=== PATIENT | male | born 1950 | race Caucasian/White ===

== ENCOUNTER → 2016-05-10 11:20 | Outpatient (CLI) | payer MEDICARE, BC ==
[2016-01-26 12:30] VITALS: BMI 25.3
[~2016-05-10 11:20] MED LIST: ASPIRIN EC81 M1 PO; BACLOFEN20 M1 PO; CRESTOR10 MG PO; DITROPAN X10 MG/BOTT PO; DOXYCYCLINE HY100 M2 PO; HYDROCODONE-APA1 TAB PO; IBUPROFEN800 MG PO; LANOXIN250 MCG PO; METROGEL 0.75 %45 GM TOPICAL; PROPRANOLOL HCL20 MG PO
[2016-05-10 12:00] LABS: BASOPHILS 0.3 % (0.0-2.0); EOSINOPHILS 2.5 % (0-7); HEMATOCRIT 47.5 % (42.0-54.0); HEMOGLOBIN 15.5 g/dL (13.5-17.5); IMMATURE GRANULOCYTES 0.4 % (0-5); MCH 31.8 pg (26.0-34.0); MCHC 32.6 g/dL (31.0-37.0); MCV 97.5 fL (80.0-100.0); MEAN PLATELET VOLUME 10.3 fL (7.4-10.4); MONOCYTES 8.5 % (2-11); NEUTROPHILS 66.3 % (40-80); RBC 4.87 10x6/uL (4.20-6.10); RDW 13.2 % (11.5-14.5)
[2016-05-10 12:01] LABS: PLATELET COUNT 165 10x3/uL (130-400)
[2016-05-10 12:24] LABS: ALBUMIN 3.9 g/dL (3.4-5.0); BILIRUBIN - DIRECT 0.15 mg/dL (0.00-0.30); BILIRUBIN - INDIRECT 0.41 mg/dL (0.00-1.00); BILIRUBIN - TOTAL 0.56 mg/dL (0.2-1.3); PROTEIN - SERUM 6.9 g/dL (6.4-8.2)
== END | disposition home or self-care (01) ==
LOC: D.LAB 11:20
PROVIDERS: Surgery
DX: Z85.038 Personal history of other malignant neoplasm of large intestine (principal)